=== PATIENT | female | born 1980 | race Caucasian/White ===

== ENCOUNTER → 2022-01-10 | Outpatient (CLI) | payer BC ==
[~2022-01-10] VITALS: Ht 175 cm; Wt 80.0 kg
[~2022-01-10] MED LIST: CATHETER FLUSH 10 ML SYR IVP PRN
[2022-01-10 08:18] VITALS: BP 142/86
--- NOTE | 2022-01-11 13:33 | STRESS TEST ---
DATE OF SERVICE: 01/10/2022 RESTING AND POST EXERCISE TECHNETIUM-99M TETROFOSMIN SPECT CT IMAGING ORDERING PHYSICIAN: Dr. Gerber. PRIMARY PHYSICIAN: Dr. Gerber. CLINICAL DIAGNOSIS: Chest discomfort. Baseline images were carried out after injection of 10.32 mCi of technetium-99m Tetrofosmin. This was followed by exercise on a treadmill. Avinash protocol was employed. This part of the study was done under Dr. Gerber's supervision and this is reported separately by her. The patient is stated to have achieved 85% of maximum predicted heart rate at which time 32.2 mCi of technetium-99m Tetrofosmin were injected, and the patient is stated to have exercise for another minute after that. Review of images at rest and following stress does not indicate any significant perfusion defects consistent with myocardial ischemia or infarction. Gated images show normal global left ventricular systolic function with normal regional wall motion. Left ventricular ejection fraction is calculated to be 60%. Left ventricular cavity size appears to be normal. CONCLUSIONS: 1. No evidence of myocardial ischemia or infarction on this study. 2. Normal regional wall motion. 3. Normal global left ventricular systolic function with a calculated ejection fraction of 60%. Job ID: [id number] DocumentID: [id number] Dictated Date: 01/11/2022 10:10:11 Vamp Throater Date: 01/11/2022 13:32:18 Dictated By: RENATA ZHANG MD, MA, FACP, FACC,
== END ==
LOC: CARD 07:00
PROVIDERS: ATTEND Internal Medicine
DX: R07.9 Chest pain, unspecified (principal)
CPT/HCPCS: 78452; 93017; A9502

== ENCOUNTER → 2022-08-28 | Outpatient (CLI) | payer BC ==
--- NOTE | 2022-08-28 10:22 | Diagnostic Imaging Report ---
INDICATION: Screening. EXAMINATION: Digital screening mammography bilaterally with CAD. COMPARISON: There is no previous study available at this time for comparison. FINDINGS: The breast parenchyma is dense bilaterally. Benign calcifications are present bilaterally. There is a probable area of fat necrosis in the medial left breast. There is no evidence of suspicious mass or clustered microcalcifications. IMPRESSION: Category 2, benign findings. Continued physical examination and annual mammographic followup are recommended. ACR BI-RADS Category 2: Benign findings. Result letter will be mailed to the patient. Note: At least 10% of breast cancer is not imaged by mammography. Dictated by: Dictated on workstation # [id number]
== END ==
LOC: RAD 07:30
PROVIDERS: ATTEND Internal Medicine
DX: Z12.31 Encounter for screening mammogram for malignant neoplasm of breast (principal)
CPT/HCPCS: 77063; 77067